=== PATIENT | female | born 1940 | race Caucasian/White ===

== ENCOUNTER 2016-05-03 08:40 | Inpatient (IN) | payer MEDICARE ==
[2016-05-03] VITALS (13 sets, daily range): BP systolic 108–161; BP diastolic 52–106; PULSE 56–75; RESP 10–19; O2SAT 98–100
[~2016-05-03] VITALS: Ht 148.6 cm; Wt 63.6 kg
[~2016-05-03 08:40] MED LIST: ASPI-973 PO; CALC-952 PO; CHOL200025 PO; CYAN500 PO; CeFAZolin 2 Gm/50 mL D5W IV Premix IV ONE; CeFAZolin Inj 2 GM in IV Premix 1 EACH IV SCH; DOCU240C41 PO; FISH1CAP15 PO; LEVO25TA41 PO; LISI10TA PO; Lactated Ringer's 1,000 ML IV SCH; MAGN400T23 PO; METF500T4 PO; QUE9 PO; Sodium Chloride LOK Flush 10 mL Syringe IVFLUSH SCH; Tranexamic Acid 100 mg/mL 10 mL Inj IV SCH; Vancomycin 1 Gm/200 mL D5W Premix IV ONE; Vancomycin Dose per Pharmacist XX ONE
[2016-05-03] MEDS ORDERED: Lactated Ringer's 1,000 ML IV ONE (08:56)
[2016-05-03] MEDS ORDERED: Vancomycin 1,000 mg/200 mL D5W IV ONE (08:57)
--- NOTE | 2016-05-03 09:50 | PCM.HPANE ---
Patient Data Surgeon Admitting Provider: Attending Provider:Bharat Johnson DO Primary Care Physician:Jabier Hernandes DO Other Provider:Dimitry Nathan Anesthesia Reason for Visit Right Knee Osteoarthritis Ht/WT & BMI Height (Feet): 4 Height (Inches): 10.50 Weight (Kilograms): 63.600 Body Mass Index 28.00 Allergies Coded Allergies: codeine (Verified Allergy, Unknown, nausea/vomiting, 04/29/16) Uncoded Allergies: STATINS (Allergy, Unknown, myalgias, 04/29/16) Past Anesthesia History Anesthesia History: Denies:: Abnormal Airway, Anesthesia Reactions, Difficult Intubation, Fam Anesthesia Reaction Diabetes History Hx Diabetes?: Yes Type of Diabetes: Type II Glycemic Control: Oral Medication Current Bedside Blood Glucose: 104 MRSA MRSA: No Medications Blood Thinner: Aspirin Hypertension Medication: Yes Home Meds Incl Beta Roxane: No Reported Medications Cyanocobalamin (Vitamin B12)500 Mcg [id number] Mcg PO DAILY 04/29/16 Docusate Calcium (Stool Softener)240 Mg [id number] Mg PO PRN For Constipation 04/29/16 Metformin 500 Mg Ucgeua617 Mg PO DAILY Ref 0 04/29/16 Magnesium Oxide (Mag-Oxide)400 Mg Emjgvj446 Mg PO DAILY 04/29/16 Lisinopril 10 Mg Jrztyb00 Mg PO DAILY 30 Days Ref 0 04/29/16 Levothyroxine (Levoxyl)25 Mcg Upjprt54 Mcg PO DAILY Ref 0 04/29/16 Fish Oil/Dha/Epa (Fish Oil 1,200 mg Fish Oil)1 Each Capsule1 Each PO DAILY 04/29/16 Cholecalciferol (Vitamin D3) (Vitamin D3)2,000 Unit Tablet2,000 Unit PO DAILY 04/29/16 Cholestyramine (Cholestyramine Packet)4 Gm Packet4 Gm PO BID Ref 0 04/29/16 Calcium Carbonate/Vitamin D3 (Calcium 500 mg Chewable Tablet)1 Each Tab.chew1 Each PO DAILY 04/29/16 Aspirin 81 Mg Guhjrt54 Mg PO DAILY Ref 0 04/29/16 History HEENT History: Denies:: Abnormal Airway Cataracts (forming, not yet surgically treated ) Difficult Intubation Dysphagia Glaucoma Hearing Problem Sinus Problem TMJ Cardiovascular History: Positive for:: Hypertension Denies:: AICD Abdominal Aortic Aneurism Cardiac Surgery Coronary Artery Disease Edema Heart Murmur Irregular Heartbeat Pacemaker Hx of Respiratory Problem?: No Respiratory History: Denies:: Asthma COPD Emphysema Oxygen Administration Pneumonia Tuberculosis Use of C-PAP Machine Use of Inhalers / NEBS Hx Neurologic Problems?: No Neurological History: Denies:: Alzheimer's Disease CVA Dementia Dizziness Headaches (migraines related to hormones- not since menopause) Multiple Sclerosis Parkinson's Disease Seizures TIA Hx of GI Problems?: No Gastrointestinal History: Denies:: Cirrhosis Gall Bladder Disease Gastroesphageal Reflux Gastrointestinal Bleeding Heartburn Hepatitis Hiatal Hernia Liver Disease Rectal Bleeding Hx of Problems?: Yes Genitourinary History: Denies:: Kidney Stones Urinary Tract Infection (pt denies symptomatic UTI) Female Hx: Denies:: Currently Problems with Breasts? ("massy") Skin History: Denies:: History Skin Disorders? Pressure Ulcers Hx Musculoskeletal Problems?: Yes Musculoskeletal History: Positive for:: Joint Replacement (left knee) Musculoskeletal Trauma (right total knee current admission problem) Osteoarthritis (hand) Denies:: Back Injury Fibromyalgia Myasthenia Gravis Rheumatoid Arthritis Systemic Lupus Hx of Psycho/Social Problems?: Yes Psycho Social History: Positive for:: Anxiety Hx Depression Hx Surgeries?: Yes (left knee, D+C) Hx Any Other Health Problems?: Yes Other History: Positive for:: Thyroid Disease Denies:: Cancer History Blood Transfusions: Positive for:: Accept Blood Products? Denies:: Blood Transfusions Hx Diabetes: YesBedside Blood Glucose: 104 Hx Alcohol Use: NoAlcoholic Drinks Per Day: wine - holidaysHx Substance Use: Yes (marijuana occasional)Have You Smoked inLast 12 mo: No Stop/Bang Treated for Sleep Apnea?: No Do You Have a CPAP Machine?: No S-Snoring: Do You Snore Loudly: Yes T-Tired: feel tired, fatigued: No O-Obsered: Observed not breath: No P-Blood Pressure: treated: Yes B- Body Mass Index > 35 kg/m2: No A- Age over 50: Yes N- Neck Large Circumference: No G- Gender Male: No HA Total Score: 3 HA Risk Assessment: Low Risk, <3 Yes Risk Assessment Category Category 1A: Patient has history of documented sleep apnea, and HAS NOT received any narcotic, sedative or anesthesia administration during this stay. Category 1B: Patient has history of documented sleep apnea, and HAS received any narcotic , sedative or anesthesia administration during this stay Category 2: Patient has SUSPECTED Obstructive Sleep Apnea, and HAS received any narcotic , sedative or anesthesia administration during this stay. Category 3: Patient has SUSPECTED Obstructive Sleep Apnea and HAS NOT received narcotic, sedative or anesthesia administration during this stay. Category 4: Outpatient in Procedural Areas with known sleep apnea or who screen positive for High Risk via the STOP/BANG questionnaire. Exam Exam Vital Signs Vital Signs Date Time Temp Pulse Resp B/P Pulse Ox O2 Delivery O2 Flow Rate FiO2 05/03/16 09:00 35.7 71 19 129/67 100 Room Air General Appearance: Oriented X3 HEENT/AIRWAY: MP 2 Lungs: Normal Air Movement Heart: Regular Rate/Rhythm Meds/Labs/Diagnostics Admission Meds Current Medications Lactated Ringer's (Lr) 1,000 ml @ ud STK-MED ONCE IV Last administered on 05/03t 08:56; Start 05/03/16 at 08:56; Stop 05/03/16 at 08:57; Status DC Bedside Blood Glucose: 104 Plan Impression Patient chart reviewed, patient interviewed and anesthestic plan with risks, benefits, and alternatives discussed, and informed consent obtained. NPO Status: 05/02 at 1999 ASA Physical Status: ASA2 Mod Systemic Disease Anesthetic Plan: Regional Block, SAB Bene/Risks/Altern/Consents: Yes HP Complete Prior to Induction: Yes Dameon Aburto MD May 03, 2016 09:50
[2016-05-03] MEDS ORDERED: Ropivacaine-PF 0.5% 30 mL Inj EPIDURAL ONE (10:48)
[2016-05-03] MEDS ORDERED: Lactated Ringer's 500 ML IV PRN (10:51)
[2016-05-03] MEDS ORDERED: Lactated Ringer's 1,000 ML IV SCH (10:51)
[2016-05-03] MEDS ORDERED: HYDROmorphone 1 mg/mL Inj IVPUSH PRN (10:55)
[2016-05-03] MEDS ORDERED: Phenylephrine 10,000 mCg/mL Inj IVPUSH PRN (10:55)
[2016-05-03] MEDS ORDERED: MetoCLOpramide 5 mg/mL 2 mL Inj IVPUSH PRN (10:55)
[2016-05-03] MEDS ORDERED: Dexamethasone 4 mg/mL Inj IVPUSH PRN (10:55)
[2016-05-03] MEDS ORDERED: fentaNYL-PF 50 mCg/mL 2 mL Inj IVPUSH PRN (10:55)
[2016-05-03] MEDS ORDERED: EPHEDrine Sulfate 50 mg/mL Inj IVPUSH PRN (10:55)
[2016-05-03] MEDS ORDERED: Ondansetron 2 mg/mL 2 mL Inj IVPUSH PRN ×2 (10:55→12:40)
[2016-05-03] MEDS ORDERED: Atropine 0.4 mg/mL Inj IVPUSH PRN (10:55)
[2016-05-03] MEDS ORDERED: Magnesium Hydroxide 10 mL Oral Concentration PO PRN (12:40)
[2016-05-03] MEDS ORDERED: Polyethylene Glycol (PEG) 17 Gm Powder PO PRN (12:40)
[2016-05-03] MEDS ORDERED: diphenhydrAMINE 25 mg Capsule PO PRN (12:40)
[2016-05-03] MEDS ORDERED: Acetaminophen IV 1,000 MG in IV Premix 1 EACH IV PRN (12:40)
[2016-05-03 12:55] LABS: APPEARANCE,URINE HAZY (CLEAR,HAZY); COLOR,URINE STRAW (YELLOW); OCCULT BLOOD,URINE TRACE (NEGATIVE); UROBILINOGEN,URINE NORMAL (NORMAL)
--- NOTE | 2016-05-03 13:16 | NUR ---
JOINT CAMP: Patient attended Joint Camp at [facility]. Patient has two stairs to enter the home and then will be on the main level for recovery. Patient's will be assisting her post surgery: his name is Esequiel Bernardman. He will also be the one to transport patient home day of discharge. Patient has an elevated toilet seat and patient has been connected with outpatient physical therapy.
--- NOTE | 2016-05-03 13:17 | DRSVH ---
PROCEDURE: X-RAY RIGHT KNEE, ONE OR TWO VIEWS ([id number]) INDICATIONS: post op TECHNIQUE: 2 view(s) of the knee acquired. COMPARISON: [facility], CR, XR KNEE BILATERAL STANDING UP, 01/29/2016, 13:49. FINDINGS: Bones: Patient is status post knee joint arthroplasty. Hardware components are in expected position s. Visualized bony structures are intact. Soft tissues: Overlying postoperative changes are noted. IMPRESSION: Expected alignment status post placement of right knee arthroplasty. Dictated by: Isaac Null RRRowan Interpreted: Ashley Jeong MD on 05/03/2016 at 13:16 Transcribed by: FRANCIS on 05/03/2016 at 13:17 Approved by: Ashley Jeong MD, PhD on 05/03/2016 at 17:04
--- NOTE | 2016-05-03 13:22 | OP ---
[address] [address] OPERATIVE REPORT PATIENT: MICHAEL STROUD : 1940 MR#: [id number] ADMIT: 05/03/2016 JOB ID: [id number] DATE OF SURGERY: 05/03/2016 PREOPERATIVE DIAGNOSIS(ES): Right knee degenerative joint disease. POSTOPERATIVE DIAGNOSIS(ES): Right knee degenerative joint disease. PROCEDURE: Right total knee arthroplasty. SURGEON: Bharat Johnson DO MILK PROCESSING WORKER: Janneth Rosales PA-C INDICATIONS: The patient is a 76-year-old female with right knee severe degenerative arthritis who had failed conservative measures and wished to proceed with a right total knee arthroplasty. We discussed the risks, benefits, and possible complications of surgery including, but not limited to injury to nerves and vessels, infection, bleeding, incomplete relief of symptoms, stiffness, need for additional procedures. The patient had good understanding. All questions were answered, and she wished to proceed. A urgent care physician assistant was required for the successful completion of this procedure. PROCEDURE IN DETAIL: The patient was brought to the operating room. She was given an adductor canal block, as well as spinal anesthetic. The right lower extremity was sterilely prepped and draped. A tourniquet was used for hemostasis. TXA 1 g was administered prior to the tourniquet to help with hemostasis. An incision was made over the anteromedial knee. Dissection was carefully carried through subcutaneous tissue. A split was made in the quad tendon, leaving a cuff of tissue for repair. This was taken to a point around the medial retinaculum and adjacent to the tibial tubercle. The patella could not be everted, as it was quite tight. I removed a portion of the anterior horn medial and lateral meniscus, as well as a portion of the fat pad and instrumented the femur with intramedullary frank. Distal femoral cut was performed with 10 degrees distal femur removed and a 5 degree distal valgus cut angle. The femur was sized and felt to be a size 5. The femur was prepared beginning with the 3 degree external rotation guide, and the chamfer cuts were made. The box cut was then made for posterior stabilized implant, and then the tibia was addressed. Extramedullary tibial cutting guide was placed parallel to the long axis of the tibia, and the tibial cut was performed and then the wafer of bone was removed. The remainder of the medial and lateral menisci were removed at this point, and the knee was then trialed with a 5 femur and a 4 and then 3 tibia. Some additional medial release was performed, and the knee then felt quite good with equal gaps medially and laterally in both flexion extension allowing full flexion and full extension. The patella was resurfaced with a freehand type technique, cut from an initial thickness of 20 to a thickness of 13. A 32 mm patellar button was chosen, drilled for, and trialed and had excellent tracking. The femur was then drilled. The tibia was drilled and punched, and the bony surfaces were washed and dried. The components were then cemented into position with antibiotic-impregnated cement beginning with the DePuy Attune three fixed bearing tibia, followed by the DePuy Attune posterior stabilized fixed bearing femur, size 5 narrow, and the 32 mm patellar button. All excess cement was removed, and the knee was held in some flexion with compression while the cement was allowed to polymerize. All excess cement was removed, and the size 5 thickness poly was inserted allowing full flexion and full extension with equal gaps medially and laterally. The tourniquet was then let down, and the second gram of TXA was administered. Electrocautery was used for hemostasis. The wound was copiously irrigated and then closed with #1 Surgilon and 0 Vicryl to close the medial retinaculum and quad tendon. The subcu was closed with a 2-0 running V-Loc suture, and the skin was closed with a subcuticular 4-0 Monocryl. Naropin was added as an adjunct local anesthetic. Sterile dressings were applied. Patient tolerated the procedure well. Blood loss was minimal, 10 cc. POSTOPERATIVE PROTOCOL: Have the patient weightbear to tolerance. Use a walker for ambulation. Ice and elevate. Plan use Lovenox for DVT prophylaxis given her diabetes and Carey 5/325 for pain, as she is quite sensitive to pain medications.
[2016-05-03] MEDS ORDERED: Ondansetron 2 mg/mL 2 mL Inj ONE (14:07)
[2016-05-03] MEDS ORDERED: MetoCLOpramide 5 mg/mL 2 mL Inj ONE (14:07)
[2016-05-03] MEDS ORDERED: Propofol 10,000 mCg/mL 20 mL Inj ONE (14:07)
--- NOTE | 2016-05-03 14:23 | PCM.ANEP1 ---
Post Anesthesia Phase 1 PACU Phase 1 Assessment Vital Signs Vital Signs Date Time Temp Pulse Resp B/P Pulse Ox O2 Delivery O2 Flow Rate FiO2 05/03/16 14:13 36.4 65 14 119/73 99 Room Air 05/03/16 13:45 60 10 114/52 99 Room Air 05/03/16 13:30 58 12 115/58 99 Room Air 05/03/16 13:15 56 12 117/63 100 Room Air 05/03/16 13:00 36.2 62 12 110/64 99 Room Air 05/03/16 12:58 12 99 05/03/16 12:55 61 14 117/62 100 Room Air 05/03/16 12:50 63 15 110/66 100 Simple Mask 8 05/03/16 12:45 68 19 112/60 100 Simple Mask 8 05/03/16 12:40 66 18 110/59 100 Simple Mask 8 05/03/16 12:37 36.2 73 19 108/59 100 Simple Mask 8 05/03/16 09:00 35.7 71 19 129/67 100 Room Air Anesthetic Administered: GA Level of Alertness: Awake, talking Pain: No Nausea or Vomiting: No Oxygen Delivery: Room Air Lungs: Normal Air Movement Dermatome Level: L3,4 (Patella) Dameon Aburto MD May 03, 2016 14:22
--- NOTE | 2016-05-03 14:23 | PCM.ANEP2 ---
Post Anesthesia Evaluation ASA/CMS Post Anesthesia VS in Patient's Normal Range?: Yes Resp Stable; Airway Patent?: Yes CV Function & Hydration Stable: Yes Mental Status Recovered?: Yes Pain control Satisfactory?: Yes N/V Control Satisfactory?: Yes Dameon Aburto MD May 03, 2016 14:23
--- NOTE | 2016-05-03 14:27 | NUR ---
Transfer from OR to [facility] patient came from OR approx 1400. Report received from OR nurse.Stable vital signs. C/o pain 4/10 to the right Knee. Reviewed doctors orders for pain management. neuros WNL. Sensation present bilateral feet and able to wiggle both toes. Will continue to monitor pain to right Knee, Neuros and vital signs.
[2016-05-03] MEDS: Insulin Human REGular 300 Unit/3 mL Inj SUBQ SCH ×2 (14:30→20:12)
[2016-05-03] MEDS: HYDROcodone-APAP 5-325 mg Tablet PO PRN ×2 (14:51→21:24)
[2016-05-03] MEDS: HYDROmorphone 1 mg/mL Inj IVPUSH PRN ×2 (15:22→19:18)
--- NOTE | 2016-05-03 15:27 | NUR ---
Pain management patient still c/o pain 10/10 after PRN PO pain medication. IV push Dilaudid given as ordered for pain 10/10. will continue to monitor. Dr. RHODES at bed side and speaking to the patient.
[2016-05-03] MEDS: Sodium Chloride LOK Flush 10 mL Syringe IV SCH (16:30)
--- NOTE | 2016-05-03 16:37 | NUR ---
Blood sugar 59 patient is alert and orieted X3. blood sugar 59. provided crackers and jello. refused milk. blood sugar 82. will notify doctor. will recheck until above 100. spouse at bed side. patient ordering dinner now.
[2016-05-03] MEDS: 0.9% Sodium Chloride 1,000 ML IV SCH (16:39)
--- NOTE | 2016-05-03 17:17 | NUR ---
Blood sugar blood sugar 138.
--- NOTE | 2016-05-03 17:37 | NUR ---
Held Metformin Called crew leader/control room operator doctor (Dr Abarca) for Dr Johnson and notified r/t blood sugars 59, 82(snack provided), and 138, verbal orders recieved to hold Metphormin tonight. patient aware and agrees.
[2016-05-03] MEDS: CeFAZolin Inj 2 GM in IV Premix 1 EACH IV SCH (19:26)
[2016-05-03] MEDS: Senna-Docusate 8.6-50 mg Tablet PO SCH (19:53)
[2016-05-03] MEDS: Cholestyramine Resin Powder 4 Gm Packet PO SCH (19:53)
[2016-05-03] MEDS: hydrOXYzine Pamoate 25 mg Capsule PO PRN (22:27)
[2016-05-04 00:01] VITALS: BP 130/74; PULSE 79; RESP 16; O2SAT 96
[2016-05-04] MEDS: Sodium Chloride LOK Flush 10 mL Syringe IV SCH ×3 (00:30→16:30)
--- NOTE | 2016-05-04 00:35 | NUR ---
POST OP PAIN: Pt. c/o right knee pain since the start of the wire spiral binder during first assessment rated at 6/10 Offered PO pain pills but she requested Dilaudid IVP, given 0.5 mg, helpful for about 2 hr, later on c/o knee pain again. Given 2 [place], pain came down to 4/10 and then reported right calf pain at 4/10 stated it feels tight and stiff. Pt. wondering if the gilberto wrap is too tight, will loosing up gilberto wrap. Pt. has negative Kaitlyn's signs. Has excellent capillary refill, toes warm to the touch, she has full sensation and she is pumping both foot frequently. Gave 25 mg of Vistaril, and place ice under calf per her request. Pt. has SCDs on. China Muñiz PA-C was notified. He will wait until AM for assessment. Soon after speaking with Mel Pt. was checked again for calf pain and she reported her pain at 0/10, stated "I have zero pain". Resting comfortably in bed. On going care.
[2016-05-04] MEDS: 0.9% Sodium Chloride 1,000 ML IV SCH ×3 (03:13→18:38)
[2016-05-04] MEDS: hydrOXYzine Pamoate 25 mg Capsule PO PRN (03:43)
[2016-05-04] MEDS: HYDROcodone-APAP 5-325 mg Tablet PO PRN ×6 (03:44→20:04)
[2016-05-04] MEDS: CeFAZolin Inj 2 GM in IV Premix 1 EACH IV SCH (03:51)
[2016-05-04] MEDS: Insulin Human REGular 300 Unit/3 mL Inj SUBQ SCH ×4 (04:01→20:17)
[2016-05-04 04:55] VITALS: BP 129/73; PULSE 77; RESP 18; O2SAT 97
[2016-05-04 06:07] LABS: BASOPHILS % (AUTO) 0.2 % (0-3); EOSINOPHILS % (AUTO) 0.1 % (0-5); MONOCYTES % (AUTO) 13.3 % (4-12); Mean Corpuscular Hemoglobin 29.4 pg (27.0-35.0); Mean Corpuscular Volume 90.1 fL (81-100); NEUTROPHILS % (AUTO) 66.7 % (40-74); Platelet Count 179 bil/L (150-400)
[2016-05-04] MEDS: Ketorolac 15 mg/mL Inj IVPUSH PRN (06:31)
[2016-05-04 07:52] VITALS: BP 118/71; PULSE 84; RESP 16; O2SAT 97
[2016-05-04] MEDS ORDERED: Omega-3 Fatty Acids 1,000 mg Capsule PO SCH (08:30)
[2016-05-04] MEDS: Calcium Carbonate (Oyster Shell) 500 mg Tablet PO SCH (08:33)
[2016-05-04] MEDS: Senna-Docusate 8.6-50 mg Tablet PO SCH ×2 (08:34→20:03)
[2016-05-04] MEDS: Cholestyramine Resin Powder 4 Gm Packet PO SCH ×2 (08:34→20:30)
[2016-05-04] MEDS: Omega-3-Acid Ethyl Esters 1 Gm Capsule PO SCH (08:59)
--- NOTE | 2016-05-04 09:01 | PCM.PNORTH ---
Subjective Date of Service: May 04, 2016 Visit Information: Reason for Visit Right Knee Osteoarthritis Surgery/Surgery Date RIGHT TOTAL KNEE 05/03/16 Post-Op Day # Date of Admission: May 03, 2016 at 14:06 Hospital Day # Subjective Found patient awake and alert and sitting up in bed eating breakfast. No complaints pain at this time. Patient indicates she has had a joint surgery in the past. Reviewed the likely course of events over the next 3 days including encouraging participation of formal therapy and discussing that we are not able to discharge patient to alf facility on postoperative day 3 so that she will need to participate with physical therapy and become mobile and safe during her stay. Patient does indicate that she has incontinence issues and I have talked with nursing about leaving the Bojorquez in place until the end of the day today or first thing tomorrow morning on postop day 2. I have also discussed with patient and nursing that patient may use a bedside commode if needed for urgency issues if she is determined to be safe and/or will call nursing for help. Postop General: No Complaints, No Shortness of Breath, No Chest Pain, Good Appetite Pain Management: PO, IV Push Objective Exam Objective Orientation: Alert and oriented 3 and pleasant. Dressing: Interoperative dressing is clean dry and intact Wound: Wound is not observed today Compartments: Calf and thigh are soft and nontender Mobility/sensation: Toe wiggle and sensation are intact at right lower extremity distally Abduction wedge: Absent OLIVIA hose: Absent Bojorquez: In place and working. Nursing may DC Bojorquez at end of day today on 2016 or first thing tomorrow morning on 05/05/2016 Drain: Absent Gait: No physical therapy yet as of this time. Vital Signs and I/O Vital Sign - Last Date Time Temp Pulse Resp B/P Pulse Ox O2 Delivery O2 Flow Rate FiO2 05/04/16 07:52 36.9 84 16 118/71 97 Room Air 05/03/16 12:50 8 Intake and Output 05/03/16 05/03/16 05/04/16 Cumulative From/Thru 15:00 23:00 07:00 04/29/16 15:49 - 05/04/16 06:23 Intake Total 1185 ml 400 ml 1690 ml 3275 ml Output Total 310 ml 250 ml 750 ml 1310 ml Balance 875 ml 150 ml 940 ml 1965 ml Intake Oral 400 ml 200 ml 600 ml IV Total 1185 ml 1490 ml 2675 ml Output Urine Total 300 ml 250 ml 750 ml 1300 ml Estimated Blood Loss 10 ml 10 ml Lab & Micro Results Laboratory Tests Test 05/03/16 11:07 05/04/16 05:36 Urine Color Straw (YELLOW) Urine Appearance Hazy (CLEAR,HAZY) Urine pH 5.30 (5.0-8.0) Urine Specific [place] 1.025 (1.003-1.035) Urine Protein Negativemg/dL (NEG,TRACE) Urine Glucose (UA) Negativemg/dL (NEGATIVE) Urine Ketones Negativemg/dL (NEGATIVE) Urine Occult Blood Trace (NEGATIVE) Urine Nitrite Negative (NEGATIVE) Urine Bilirubin Negative (NEGATIVE) Urine Urobilinogen Normalmg/dL (NORMAL) Urine Leukocyte Esterase Negative (NEGATIVE) Urine RBC 0-2/hpf (0-2) Urine WBC 0-5/hpf (0-5) Urine Epithelial Cells Occasional/hpf (NONE-MOD) Urine Crystals None seen (NONE SEEN) Urine Bacteria None/hpf (NONE-FEW) Urine Hyaline Casts None/lpf (NONE) Urine Granular Casts None seen (NONE SEEN) Urine Waxy Casts None seen (NONE SEEN) Urine Red Blood Cell Casts None seen (NONE SEEN) Urine White Blood Cell Casts None seen (NONE SEEN) Urine Mucus None seen (None Seen) Urine Trichomonas None seen (NONE SEEN) Urine Yeast None (NONE SEEN) Urinalysis Comment None Urine Culture Reflexed Not indicated White Blood Count 10.0th/mm3 (3.8-10.1) Red Blood Count 4.05mil/mm3 (3.90-5.20) Hemoglobin 11.9g/dL (12.0-15.6) Hematocrit 36.5% (35.0-46.0) Mean Corpuscular Volume 90.1fL (81-100) Mean Corpuscular Hemoglobin 29.4pg (27.0-35.0) Mean Corpuscular Hemoglobin Concent 32.6% (32.0-37.0) Red Cell Distribution Width 13.1% (12.3-15.4) Platelet Count 179bil/L (150-400) Neutrophils (%) (Auto) 66.7% (40-74) Lymphocytes (%) (Auto) 19.6% (14-46) Monocytes (%) (Auto) 13.3% (4-12) Eosinophils (%) (Auto) 0.1% (0-5) Basophils (%) (Auto) 0.2% (0-3) Sodium Level 137mEq/L (134-144) Potassium Level 4.4mEq/L (3.5-5.2) Chloride Level 104mEq/L (97-108) Carbon Dioxide Level 21mmol/L (18-29) Blood Urea Nitrogen 15mg/dL (8-27) Creatinine 0.79mg/dL (0.57-1.00) Estimat Glomerular Filtration Rate 102mL/min (>59) Glucose Level 151mg/dL (60-99) Calcium Level 8.7mg/dL (8.5-10.1) Result Diagram: 05/04/1653505/04/16535 General Appearance: Alert, Oriented X3, Cooperative, No Acute Distress Extremities: No Compartment Syndrom Noted, Thigh & Calf Soft/Nontender Postop Sensory Motor: Distal Motor Intact, Movement in Toes, Distal Sensation Intact Activity: Activity per PT, Ambulate with PT (weightbearing as tolerated on the right lower extremity using front wheeled walker) Catheters: Urethral 2 Way Bojorquez (Bojorquez should be discontinued at the end of the day today or first thing in the morning on 05/05/2016.) Assessment & Plan Impression Patient is a pleasant 76-year-old female who has undergone joint surgery in her past. She is alert and oriented and we have discussed discharge to home on postop day 3. Problems: Plan Postop day # 1 from right total knee arthroplasty on 05/03/[address] Bharat Johnson. Weight bearing status: Weightbearing as tolerated on the right lower extremity Mobility aid: Front wheeled walker Immobilization: None Precautions: Standard general postoperative total knee precautions Physical therapy: Continue formal physical therapy for mobility, gait and safety. Patient has been encouraged to participate fully and advised of discharge to home on postop day 3. Pain control: Patient will discharged on [place] 5 mg secondary to opioid intolerance issues. Nursing please move patient to by mouth pain meds as soon as possible which may include [place] 5 mg and Vistaril if an as needed. DVT prophylaxis: Lovenox 40 mg subcutaneous daily 14 days postop with transition to ASA 325 mg EC by mouth daily 4 weeks postop totaling 6 weeks postoperative DVT prophylaxis. Wound care: Keep wound and dressing clean dry and intact until seen in office in 2 weeks. Infectious DZ: None Bojorquez: In place and working this morning. I have advised nursing they may discontinue Bojorquez later today or first thing tomorrow morning secondary to incontinence issues. Patient may use brace, pads or bedside commode as needed. Dressing: Interoperative dressing is clean dry and intact and will be changed tomorrow on 05/05/2016 280 D and fishnet-type dressing with Silverlon. Drain: Absent Abduction wedge: Absent OLIVIA hose: OLIVIA hose will be ordered today and left thigh-high 10 should be applied today. Right thigh-high OLIVIA hose may be applied on postop day 2 after dressing is changed. Nursing communication: Nursing please move patient off of IV pain medication as soon as possible and work towards note will 5 mg with Vistaril as needed. Nursing may leave Bojorquez in place until end of day today on 05/04/2016 or first thing tomorrow morning on 2016 at which time it should be removed. Patient may use brace, pads or bedside commode as needed. Nursing please fit left thigh-high OLIVIA hose today and apply right thigh-high OLIVIA hose tomorrow after dressing change. 2-week follow-up: Follow-up in 2 weeks at [facility]opedic clinic on previous appointment with mid-level provider for wound check and suture removal. 6-week follow-up: Follow-up in 6 weeks at [facility] orthopedic clinic on prearranged appointment with Dr. Bharat Cummings with right two-view knee x-rays on arrival. Discharge plan: Anticipated discharge to home with spouse as caregiver on postop day #3, 05/06/2016. VTE Prophylaxis: Sub-Q Enoxaparin (Lovenox 40 mg subcutaneous daily 2 weeks postop with transition to ASA 325 mg EC by mouth daily 4 weeks postop totaling 6 weeks postoperative DVT prophylaxis.), SCDs (bilateral thigh-high OLIVIA hose), Babar Duarte PA-C May 04, 2016 09:00
[2016-05-04 11:19] VITALS: BP 148/67; PULSE 75; RESP 17; O2SAT 97
--- NOTE | 2016-05-04 15:36 | NUR ---
Social Work Continued Discharge Planning: SW attempted to meet with patient at bedside to discuss discharge plan. Patient occupied by staff at this time. SW to complete assessment at a more appropriate time. SW to follow. Toni BISHOP
[2016-05-04 17:35] VITALS: BP 130/81; PULSE 83; RESP 19; O2SAT 97
--- NOTE | 2016-05-04 18:57 | NUR ---
Post op pain patient c/o pain couple times this shift to her right knee with pain levels 4-7/10. KORTNEY wrap is clean dry and intact. PA at bed side this AM speaking to patient. Called CS for Thigh high [place] hose per PA orders. per PA Loredo can be out end of day today or tomorrow morning. patient requesting loredo out tomorrow after physical therapy. patient up in her room with PT twice this shift. stable blood sugars. stable vital signs. call light with in reach for safety. stable mood. continue to monitor post op pain to right knee, vital signs, and safety. neuros WNL. sensation present in both feet/toes. Able to wiggle bilateral toes. normal capillary refill to right knee.
[2016-05-04 20:20] VITALS: BP 147/75; PULSE 95; RESP 18; O2SAT 95
[2016-05-05] MEDS: hydrOXYzine Pamoate 25 mg Capsule PO PRN ×4 (00:05→16:06)
[2016-05-05] MEDS: HYDROcodone-APAP 5-325 mg Tablet PO PRN ×6 (00:06→22:12)
[2016-05-05] MEDS: Sodium Chloride LOK Flush 10 mL Syringe IV SCH ×4 (00:30→22:03)
[2016-05-05] MEDS: Insulin Human REGular 300 Unit/3 mL Inj SUBQ SCH ×4 (02:30→22:02)
[2016-05-05 04:13] VITALS: BP 152/78; PULSE 93; RESP 19; O2SAT 96
[2016-05-05] MEDS: 0.9% Sodium Chloride 1,000 ML IV SCH ×2 (04:38→14:38)
--- NOTE | 2016-05-05 05:59 | NUR ---
REFUSED TARA HOSE/SCD: Orders for thigh high tara hose: Place left tara hose Wed night and right tara hose Thurs after dressing change on the right leg. Pt. refused all. For pain has been taking 1 or 2 Vicodin as per her request and 25 mg of Vistaril as per RN suggestions. Helpful, keeping pain under 4/10 mostly. Pt. requested to keep her Bojorquez catheter until after working with the PT this am. She is aware that it must be removed today. her total urinary output tonight was 1000 ml. IV turned to tko, Pt. is drinking fluids and eating regular food without difficulty. No c/o nausea or vomiting. A & O, vss. On going care.
[2016-05-05 06:28] LABS: BASOPHILS % (AUTO) 0.1 % (0-3); EOSINOPHILS % (AUTO) 0.7 % (0-5); MONOCYTES % (AUTO) 12.3 % (4-12); Mean Corpuscular Hemoglobin 29.1 pg (27.0-35.0); Mean Corpuscular Volume 89.7 fL (81-100); NEUTROPHILS % (AUTO) 73.6 % (40-74); Platelet Count 170 bil/L (150-400)
[2016-05-05 07:53] VITALS: BP 131/76; PULSE 82; RESP 16; O2SAT 98
[2016-05-05] MEDS: Senna-Docusate 8.6-50 mg Tablet PO SCH ×2 (08:27→20:23)
[2016-05-05] MEDS: Omega-3-Acid Ethyl Esters 1 Gm Capsule PO SCH (08:30)
[2016-05-05] MEDS: Calcium Carbonate (Oyster Shell) 500 mg Tablet PO SCH (08:30)
[2016-05-05] MEDS: Cholestyramine Resin Powder 4 Gm Packet PO SCH ×2 (08:43→22:02)
[2016-05-05] MEDS: Ketorolac 15 mg/mL Inj IVPUSH PRN (09:58)
--- NOTE | 2016-05-05 11:12 | PCM.PNORTH ---
Subjective Date of Service: May 05, 2016 Visit Information: Reason for Visit Right Knee Osteoarthritis Surgery/Surgery Date RIGHT TOTAL KNEE 05/03/16 Post-Op Day # 2 Date of Admission: May 03, 2016 at 14:06 Hospital Day # Subjective Patient states her pain is under better control now that she has gotten a Toradol injection. Patient just completed physical therapy. Patient states she is very proud with results she did with physical therapy and states she is feeling stronger. Postop General: No Complaints, No Shortness of Breath, No Chest Pain, Good Appetite Pain Management: PO, IV Push (Toradol) Objective Exam Objective Patient laying in bed after PT. Vital Signs and I/O Vital Sign - Last Date Time Temp Pulse Resp B/P Pulse Ox O2 Delivery O2 Flow Rate FiO2 05/05/16 07:53 36.5 82 16 131/76 98 Room Air 05/03/16 12:50 8 Intake and Output 05/04/16 05/04/16 05/05/16 Cumulative From/Thru 15:00 23:00 07:00 04/29/16 15:49 - 05/05/16 05:44 Intake Total 400 ml 600 ml 4275 ml Output Total 1950 ml 1000 ml 4260 ml Balance -1550 ml -400 ml 15 ml Intake Oral 400 ml 600 ml 1600 ml IV Total 2675 ml Output Urine Total 1950 ml 1000 ml 4250 ml Estimated Blood Loss 10 ml Lab & Micro Results Laboratory Tests Test 05/05/16 06:18 White Blood Count 10.8th/mm3 (3.8-10.1) Red Blood Count 3.99mil/mm3 (3.90-5.20) Hemoglobin 11.6g/dL (12.0-15.6) Hematocrit 35.8% (35.0-46.0) Mean Corpuscular Volume 89.7fL (81-100) Mean Corpuscular Hemoglobin 29.1pg (27.0-35.0) Mean Corpuscular Hemoglobin Concent 32.4% (32.0-37.0) Red Cell Distribution Width 13.2% (12.3-15.4) Platelet Count 170bil/L (150-400) Neutrophils (%) (Auto) 73.6% (40-74) Lymphocytes (%) (Auto) 13.1% (14-46) Monocytes (%) (Auto) 12.3% (4-12) Eosinophils (%) (Auto) 0.7% (0-5) Basophils (%) (Auto) 0.1% (0-3) Sodium Level 140mEq/L (134-144) Potassium Level 4.2mEq/L (3.5-5.2) Chloride Level 109mEq/L (97-108) Carbon Dioxide Level 21mmol/L (18-29) Blood Urea Nitrogen 9mg/dL (8-27) Creatinine 0.57mg/dL (0.57-1.00) Estimat Glomerular Filtration Rate 148mL/min (>59) Glucose Level 133mg/dL (60-99) Calcium Level 8.7mg/dL (8.5-10.1) Result Diagram: 05/05/1661705/05/16617 General Appearance: Alert, Oriented X3, Cooperative, No Acute Distress Extremities: Distal Pulses Palpable, No Compartment Syndrom Noted, Thigh & Calf Soft/Nontender Postop Sensory Motor: Distal Motor Intact, Movement in Toes, Distal Sensation Intact, NVI Distally SURGICAL WOUND : Wound Location/Description Perioperative dressing removed. Silveron was left in place. Thigh high compression stockings were then applied. Incision General Appearance: Steri Strips, Well Approximated, Incision Healing Dressing & Drainage Status: Changed Activity: Activity per PT, Ambulate with PT (weightbearing as tolerated on the right lower extremity using front wheeled walker) Catheters: Urethral 2 Way Bojorquez (Remove today) Assessment & Plan Impression Postoperative day #2 right total knee arthroplasty Problems: Plan Please remove Bojorquez. Weightbearing: Weightbearing as tolerated with a front wheeled walker DVT prophylaxis: Lovenox 40 mg subcutaneous 14 days with transition to aspirin 325 mg enteric-coated twice daily a day 4 weeks, for a total of 6 weeks postoperative DVT prophylaxis Physical therapy for transfers, progressive ambulation, strengthening Wound care: Perioperative dressing changed today. Remove silveron if it becomes saturated. Replace with ABD pad. Keep OLIVIA compression stockings in place bilaterally. Analgesia: Patient will be discharged on [place] 5 mg. Please encourage oral pain management using [place] and Vistaril. Discharge plan: Discharge home in tomorrow. Start outpatient physical therapy within one week. Follow-up plan: In 2 weeks at [facility] with PA for wound check and at [address] Johnson with x-rays. VTE Prophylaxis: Sub-Q Enoxaparin (Lovenox 40 mg subcutaneous daily 2 weeks postop with transition to ASA 325 mg EC by mouth daily 4 weeks postop totaling 6 weeks postoperative DVT prophylaxis.), SCDs (bilateral thigh-high OLIVIA solis), Yesenia Ly PA-C May 05, 2016 10:37
[2016-05-05 13:10] VITALS: BP 138/51; PULSE 89; RESP 17; O2SAT 98
--- NOTE | 2016-05-05 13:59 | NUR ---
Social Work Initial Assessment: SW met with patient at bedside to discuss discharge plan. Patient is a 76 year old female admitted on 05/03/16 for right knee osteoarthritis. Patient payer as [employer]. Patient has no terminal makeup operator disability nor VA benefits. Patient PCP as MD Hernandes. Patient resides with Anjum, in [place]. Patient states to provide support and care at home. Patient pharmacy of choice as [facility]. Patient has no previous HHC history. Patient has a walker and cane at home. Patient states has no SNF history. Patient states she has a scheduled outpatient therapy appointment in [facility] upon discharge. PT notes reviewed and recommendations for [facility] PT. SW reviewed ortho notes which reflect outpt therapy follow up. SW to follow up with ortho tomorrow upon discharge to discuss outpt vs HHC arrangements for patient at discharge. SW to follow. PLAN: Home with and outpatient PT in [facility] vs [facility] PT, pending clinical course. SW to follow. Toni BISHOP Addendum: 05/05/16 at 1404 by BJ MASON Amended: Links added.
--- NOTE | 2016-05-05 15:01 | NUR ---
Evaluation completed. Please go to "Notes" then click on "Assessments and Notes" (bottom left corner of screen). Then select appropriate discipline tab on top of screen.
--- NOTE | 2016-05-05 15:55 | NUR ---
Loredo Catheter Discontinued Loredo catheter discontinued per provider ordered by student at 1120. Patient reported no pain with removal. Patient voiding spontaneously 3 hours after loredo removal, denies any pain, burning or other difficulty with urination. Patient appropriately using bedpan, but reports baseline incontinence. Care is ongoing.
[2016-05-05 20:14] VITALS: BP 132/65; PULSE 95; RESP 18; O2SAT 99
[2016-05-06] MEDS: 0.9% Sodium Chloride 1,000 ML IV SCH ×2 (00:38→10:38)
[2016-05-06] MEDS: Insulin Human REGular 300 Unit/3 mL Inj SUBQ SCH ×2 (02:30→08:30)
[2016-05-06] MEDS: HYDROcodone-APAP 5-325 mg Tablet PO PRN ×2 (03:02→08:48)
[2016-05-06] MEDS: hydrOXYzine Pamoate 25 mg Capsule PO PRN ×2 (03:04→08:48)
[2016-05-06 04:52] VITALS: BP 120/67; PULSE 95; RESP 16; O2SAT 97
--- NOTE | 2016-05-06 06:00 | NUR ---
Pain Pt reports pain in knee, managed with PO meds this shift. IV patent running NS TKO. No complaints of SOB, Cardiac distress, or GI upset. Pt has small BM. Minimal drainage on dressing, OLIVIA hose in place. Care continues
--- NOTE | 2016-05-06 06:41 | PCM.PNORTH ---
Subjective Date of Service: May 06, 2016 Visit Information: Reason for Visit Right Knee Osteoarthritis Surgery/Surgery Date RIGHT TOTAL KNEE 05/03/16 Post-Op Day # Date of Admission: May 03, 2016 at 14:06 Hospital Day # Subjective Found the patient sleeping and easily awakened as morning. No complaints of pain at this time. Discussed anticipated discharge today and patient is in agreement with this. Discussed possible home health therapy versus outpatient PT immediately. Patient indicates she does have outpatient physical therapy scheduled to begin next week. Reviewed dressing change with patient this morning and gave patient additional ABDs, Silverlon dressing and a fishnet. Postop General: No Complaints, No Shortness of Breath, No Chest Pain, Good Appetite Pain Management: PO Objective Exam Objective Orientation: Alert and oriented 3 and pleasant Dressing: Interoperative dressing has been changed to postop dressing with Silverlon in place and no ABDs. Wound: Wound is clean dry and intact with no erythema, no drainage and no focal swelling. Compartments: Calf and thigh are soft and nontender Mobility/sensation: Toe wiggle and sensation are intact that right lower extremity distally Abduction wedge: None OLIVIA hose: OLIVIA hose are in place. Bojorquez: Absent Drain: None Gait: Gait 55 feet with physical therapy yesterday on 05/05/2016. Recommendation at that time was discharged home with home health. Vital Signs and I/O Vital Sign - Last Date Time Temp Pulse Resp B/P Pulse Ox O2 Delivery O2 Flow Rate FiO2 05/06/16 04:52 36.2 95 16 120/67 97 Room Air 05/03/16 12:50 8 Intake and Output 05/05/16 05/05/16 05/06/16 Cumulative From/Thru 15:00 23:00 07:00 04/29/16 15:49 - 05/06/16 01:14 Intake Total 70 ml 636 ml 4981 ml Output Total 750 ml 5010 ml Balance 70 ml -114 ml -29 ml Intake Oral 636 ml 2236 ml IV Total 70 ml 2745 ml Output Urine Total 750 ml 5000 ml Estimated Blood Loss 10 ml # Voids 2 2 Result Diagram: 05/05/1618 05/05/1618 General Appearance: Alert, Oriented X3, Cooperative, No Acute Distress Extremities: No Compartment Syndrom Noted, Thigh & Calf Soft/Nontender Postop Sensory Motor: Distal Motor Intact, Movement in Toes, Movement in Fingers SURGICAL WOUND : Incision General Appearance: Steri Strips, Well Approximated, Incision Healing Dressing & Drainage Status: Changed Activity: Activity per PT, Ambulate with PT (weightbearing as tolerated on the right lower extremity using front wheeled walker) Catheters: None Assessment & Plan Impression Patient is a very pleasant 76-year-old female who is undergone a right total knee arthroplasty on 05/03/2016. She has participated well for physical therapy and is prepared for discharge today on 05/06/2016. Problems: Plan Postop day # 3 from right total knee arthroplasty on 05/03/[address] Bharat Johnson. Weight bearing status: Weightbearing as tolerated on the right lower extremity Mobility aid: Front wheeled walker Immobilization: None Precautions: Standard general postoperative total knee precautions Physical therapy: Continue formal physical therapy for mobility, gait and safety. Patient has been encouraged to participate fully and advised of discharge to home today on postop day #3, 05/06/2016. Pain control: Patient will discharged on [place] 5 mg and Vistaril. Home medication Rx has been placed in chart. DVT prophylaxis: Lovenox 40 mg subcutaneous daily 14 days postop with transition to ASA 325 mg EC by mouth daily 4 weeks postop totaling 6 weeks postoperative DVT prophylaxis. Home medication Rx has been placed in chart. Wound care: Keep wound and dressing clean, dry and intact until seen in office in 2 weeks. Infectious DZ: None Bojorquez: Absent Dressing: Interoperative dressing has been changed to postop dressing with Silverlon and ABD. additional dressing supplies have been given to the patient and placed in her suitcase. Drain: Absent Abduction wedge: Absent OLIVIA hose: OLVIIA hose in place bilaterally Nursing communication: 2-week follow-up: [facility] on previous appointment with mid-level provider for wound check and suture removal. 6-week follow-up: Follow-up in 6 weeks at [facility] orthopedic clinic on prearranged appointment with Dr. hBarat Cummings with right two-view knee x-rays on arrival. Discharge plan: Anticipated discharge to home with spouse as caregiver today on postop day #3, 05/06/2016. Home health form has been given to discharge plantar to be used if needed. VTE Prophylaxis: Sub-Q Enoxaparin (Lovenox 40 mg subcutaneous daily 2 weeks postop with transition to ASA 325 mg EC by mouth daily 4 weeks postop totaling 6 weeks postoperative DVT prophylaxis.), SCDs (bilateral thigh-high OLIVIA max), OLIVIA Max, Other Babar Ny PA-C May 06, 2016 06:41
--- NOTE | 2016-05-06 06:44 | PCM.DIORTH ---
Ortho Discharge Instruction Date of Service: May 06, 2016 Dates of Hospitalization Date of Hospital Admission May 03, 2016 at 14:06 Providers Admitting Physician: Bharat Johnson DO Primary Care Physician: Jabier Hernandes DO Attending Physician: Bharat Johnson DO Diet Discharge Diet: No restrictions Activity Discharge Activity-General: Try not to overdue, Be up and about, Balance rest and activity, Ice incision 3-5 time/day for 20min, Activity as pain allows, Activity as energy allows, No driving while taking narcotic Right Lower Extremity: Weight Bearing as tolerated Discharge Assist Device: Front Wheeled Walker Dressing and Incisional Care Discharge Dressing Care: Keep dressing clean, dry & intact, Change soiled dressing Discharge Hygiene: May shower (patient may shower but wound and dressing should be covered and kept clean, dry and intact.), DO NOT soak incision under water, NO bathtub, hot tub or whirlpool Additional Instructions Discharge Instructions Postop day # 1 from right total knee arthroplasty on 05/03/[address] Bharat Johnson. Weight bearing status: Weightbearing as tolerated on the right lower extremity Mobility aid: Front wheeled walker Immobilization: None Precautions: Standard general postoperative total knee precautions Physical therapy: Continue formal physical therapy for mobility, gait and safety. Patient has been encouraged to participate fully and advised of discharge to home on postop day 3. Pain control: Patient will discharged on [place] 5 mg secondary to opioid intolerance issues. Nursing please move patient to by mouth pain meds as soon as possible which may include [place] 5 mg and Vistaril if an as needed. DVT prophylaxis: Lovenox 40 mg subcutaneous daily 14 days postop with transition to ASA 325 mg EC by mouth daily 4 weeks postop totaling 6 weeks postoperative DVT prophylaxis. Wound care: Keep wound and dressing clean dry and intact until seen in office in 2 weeks. Infectious DZ: None Bojorquez: In place and working this morning. I have advised nursing they may discontinue Bojorquez later today or first thing tomorrow morning secondary to incontinence issues. Patient may use brace, pads or bedside commode as needed. Dressing: Interoperative dressing is clean dry and intact and will be changed tomorrow on 05/05/2016 280 D and fishnet-type dressing with Silverlon. Drain: Absent Abduction wedge: Absent OLIVIA hose: OLIVIA hose will be ordered today and left thigh-high 10 should be applied today. Right thigh-high OLIVIA hose may be applied on postop day 2 after dressing is changed. Nursing communication: Nursing please move patient off of IV pain medication as soon as possible and work towards note will 5 mg with Vistaril as needed. Nursing may leave Bojorquez in place until end of day today on 05/04/2016 or first thing tomorrow morning on 2016 at which time it should be removed. Patient may use brace, pads or bedside commode as needed. Nursing please fit left thigh-high OLIVIA hose today and apply right thigh-high OLIVIA hose tomorrow after dressing change. 2-week follow-up: Follow-up in 2 weeks at [facility] orthopedic clinic on previous appointment with mid-level provider for wound check and suture removal. 6-week follow-up: Follow-up in 6 weeks at [facility] orthopedic clinic on prearranged appointment with Dr. Bharat Cummings with right two-view knee x-rays on arrival. Discharge plan: Anticipated discharge to home with spouse as caregiver on postop day #3, 05/06/2016 Follow Up Plan Follow Up Plan Patient will be seen at 2 weeks, 6 weeks and 12 weeks postoperatively. Patient will be seen when necessary in the interim. Follow-up Provider (F9): Bharat Johnson DO Follow-up appointment: Weeks (patient will be seen in 2 weeks at [facility] orthopedic clinic with mid-level provider for wound check and suture removal.) Call your provider for: Fever, Chills, Shortness of breath, Vomitting, Drainage at incision Babar Ny PA-C May 06, 2016 06:44
[2016-05-06] MEDS ORDERED: HYDR-4003 PO (06:49)
[2016-05-06] MEDS ORDERED: ASPI500T8 PO (06:49)
[2016-05-06] MEDS ORDERED: HYDR-3797 PO (06:49)
[2016-05-06] MEDS ORDERED: ENOX40DI8 SUBQ (06:49)
--- NOTE | 2016-05-06 06:54 | PCM.DC.ORT ---
Discharge Summary Date of Service: May 06, 2016 Date of Hospital Admission: May 03, 2016 at 14:06 Date of Surgery: May 03, 2016 Date of Discharge: May 06, 2016 Reason for Hospitalization: Severe right knee osteoarthritis Procedures Performed: Right total knee arthroplasty Hospital Course: Patient was admitted through the preoperative care unit on 05/03/2016 and upon processing was taken to the operating room where her procedure was performed without incident. Upon awakening patient was transferred to the postoperative care unit and upon recovery from anesthesia was transferred to the orthopedic care unit where she participated with formal physical therapy. Patient received a recommendation for discharge to home and was discharged to home with spouse as caregiver on 05/06/2016. Problems: (1) Arthritis of knee, right Status: Acute ICD Code: M19.90 Disposition: Discharged to home with spouse as caregiver on postop day #3, 05/06/2016. Orthopedic Follow up Plan: In Two Weeks in my clinic (follow-up in [address] [facility] orthopedic clinic with mid-level provider on prearranged appointment for wound check and suture removal.) Discharge Instructions: Postop day # 3 from right total knee arthroplasty on 05/03/[address] Bharat Johnson. Weight bearing status: Weightbearing as tolerated on the right lower extremity Mobility aid: Front wheeled walker Immobilization: None Precautions: Standard general postoperative total knee precautions Physical therapy: Continue formal physical therapy for mobility, gait and safety. Patient has been encouraged to participate fully and advised of discharge to home today on postop day #3, 05/06/2016. Pain control: Patient will discharged on [place] 5 mg and Vistaril. Home medication Rx has been placed in chart. DVT prophylaxis: Lovenox 40 mg subcutaneous daily 14 days postop with transition to ASA 325 mg EC by mouth daily 4 weeks postop totaling 6 weeks postoperative DVT prophylaxis. Home medication Rx has been placed in chart. Wound care: Keep wound and dressing clean, dry and intact until seen in office in 2 weeks. Infectious DZ: None Bojorquez: Absent Dressing: Interoperative dressing has been changed to postop dressing with Silverlon and ABD. additional dressing supplies have been given to the patient and placed in her suitcase. Drain: Absent Abduction wedge: Absent OLIVIA hose: OLIVIA hose in place bilaterally Nursing communication: 2-week follow-up: Follow-up in 2 weeks at [facility] orthopedic clinic on previous appointment with mid-level provider for wound check and suture removal. 6-week follow-up: Follow-up in 6 weeks at [facility] orthopedic clinic on prearranged appointment with Dr. Bharat Cummings with right two-view knee x-rays on arrival. Discharge plan: Anticipated discharge to home with spouse as caregiver today on postop day #3, 05/06/2016. Home health form has been given to discharge plantar to be used if needed. Management Plan: Patient will be seen at 2 weeks, 6 weeks and 12 weeks postoperatively. Patient will be seen when necessary in the interim. Aspirin EC (Aspirin EC) 500 Mg Tablet.dr 325 MG PO DAILY To begin after Lovenox course has been completed and continued for 4 weeks. Calcium Carbonate/Vitamin D3 (Calcium 500 mg Chewable Tablet) 1 Each Tab.chew 1 EACH PO DAILY Cholecalciferol (Vitamin D3) (Vitamin D3) 2,000 Unit Tablet 2,000 UNIT PO DAILY Cholestyramine (Cholestyramine Packet) 4 Gm Packet 4 GM PO BID Cyanocobalamin (Vitamin B12) 500 Mcg Tablet 500 MCG PO DAILY Docusate Calcium (Stool Softener) 240 Mg Capsule 240 MG PO PRN For Constipation Enoxaparin Sodium (Enoxaparin Sodium) 40 Mg/0.4 Ml Syringe 40 MG SUBQ Q24 Hydrocodone-Acetaminophen 5-325 mg (Hydrocodone-Acetaminophen 5-325 mg) 1 Each Tablet 1-2 TABLET PO Q4-6H PRN PRN For Moderate Pain Hydroxyzine Pamoate (HydrOXYzine Pamoate) 25 Mg Capsule 25 MG PO Q4H PRN PRN For Spasm and/or Restlessness Levothyroxine (Levoxyl) 25 Mcg Tablet 25 MCG PO DAILY Lisinopril (Lisinopril) 10 Mg Tablet 10 MG PO DAILY Magnesium Oxide (Mag-Oxide) 400 Mg Tablet 400 MG PO DAILY Metformin (Metformin) 500 Mg Tablet 500 MG PO DAILY Babar Ny PA-C May 06, 2016 06:53
[2016-05-06] MEDS: Calcium Carbonate (Oyster Shell) 500 mg Tablet PO SCH (08:30)
[2016-05-06] MEDS: Sodium Chloride LOK Flush 10 mL Syringe IV SCH (08:30)
[2016-05-06] MEDS: Omega-3-Acid Ethyl Esters 1 Gm Capsule PO SCH (08:30)
[2016-05-06] MEDS: Cholestyramine Resin Powder 4 Gm Packet PO SCH (08:44)
[2016-05-06] MEDS: Senna-Docusate 8.6-50 mg Tablet PO SCH (08:47)
--- NOTE | 2016-05-06 09:27 | NUR ---
Social Work Discharge SW met with patient at bedside to discuss discharge plan. Order for discharge acknowledged. SW met with patient to discuss plans of outpt PT vs HHC. Patient states choice to discharge home with [facility] services and to assist with care needs. SW provided HHC choice list. List declined. Patient states choice as [facility]. SW provided access to [facility] and notified HHC rep Sumeet of referral. Service to begin 24-48hrs following discharge. No other needs. SW to follow. PLAN: Home with and HHC via [facility] to provide transport home. No other needs identified. Toni BISHOP
--- NOTE | 2016-05-06 20:31 | NUR ---
Discharge Orders for discharge were received. The patient was made aware of the plan to discharge and was agreeable to go. The patient was given information regarding her diagnosis, treatment, new medications, signs and symptoms to be aware of, follow up instruction and her scripts. The patient signified understanding of this information and her asymptomatic IV was removed intact. The patient then dressed in her own clothing and gathered her belonging and ambulated into a wheelchair which took her to them main entrance where she ambulated into a private vehicle. At the time of discharge the patient was alert and oriented, surgical dressing CDI, and without complain of pain or nausea.
== END 2016-05-06 12:58 | disposition home health service (06) | DRG 470 ==
LOC: SAS 08:40 → OSC 14:06
PROVIDERS: ADMIT Orthopaedic Surgery; ATTEND Orthopaedic Surgery
PROC: 0SRC0J9 Replacement of Right Knee Joint with Synthetic Substitute, Cemented, Open Approach (ICD-10-PCS; principal; 2016-05-03 10:45)
DX: M17.11 Unilateral primary osteoarthritis, right knee (principal); E11.9 Type 2 diabetes mellitus without complications; E03.9 Hypothyroidism, unspecified; Z96.652 Presence of left artificial knee joint